=== PATIENT | male | born 1995 | race Caucasian/White ===

== ENCOUNTER 2023-10-11 18:45 | Emergency (ER) | payer SELFPAY ==
--- NOTE | ~2023-10-11 | XR_ITS ---
EXAMINATION: XR KNEE, LEFT CLINICAL INFORMATION: Left knee pain, hockey collision COMPARISON: None available. TECHNIQUE: AP, lateral, and both oblique views of the left knee. FINDINGS: No evidence of acute fracture or malalignment. Incidental proximal tibial metaphyseal bone island. Joint spaces well-preserved. No suprapatellar joint effusion. Soft tissues unremarkable. XR/XR knee LT 4V IMPRESSION: Normal left knee radiographs.
[2023-10-11 18:51] VITALS: BP 132/76; BP 148/80; PULSE 104; PULSE 86; RESP 18; TEMP 37; O2SAT 95; O2SAT 98; BMI 28.6
--- NOTE | 2023-10-11 19:27 | ED.GENADULT ---
HPI - General Adult General Chief complaint: Extremity Injury, Lower Stated complaint: Hockey collision, L knee pain, hx of torn meniscus Time Seen by Provider: 10/11/23 18:51 Source: patient Mode of arrival: ambulatory Limitations: no limitations History of Present Illness HPI narrative: 28 yold male presents with pmh of left torn meniscus presents to the ED for left knee pain. patient states he was playing hockey and he fell and other players fell unto his left knee and heard a popping sound in left knee. Patient states he had helmet on and had no loss of concssiosuness. patient staets no other complaints. Related Data Previous Rx's Medication Instructions Recorded ketorolac 10 mg tablet 10 mg PO Q6H PRN pain 5 days #20 10/11/23 tabs prednisone 20 mg tablet 40 mg (2 x 20 mg) PO DAILY 5 days 10/11/23 #10 tabs Allergies Allergy/AdvReac Type Severity Reaction Status Date / Time No Known Allergies Allergy Verified 10/11/23 18:57 Review of Systems Review of Systems: left knee pain. heard a pop. Yes all other systems are reviewed and are negative [facility] Social History Social History Advance Directives: No Advance Directives Information Provided: Yes Physical Exam ED Vital Signs: Vital Signs - 24 hr 10/11/23 18:51 Temperature 98.6 F Pulse Rate 86 Respiratory Rate 18 Blood Pressure 132/76 Pulse Oximetry 95 Oxygen Delivery Method Room Air BMI result Body Mass Index 28.6 Const General: cooperative, healthy appearing, comfortable, no acute distress and well developed Orientation/consciousness: oriented to person, oriented to place, oriented to time and patient oriented x3 HENMT Head: Yes normal to inspection, Yes No palpable skull fracture present, Yes normocephalic, Yes atraumatic, No abrasion, No Acrocyanosis present, No Lucas's sign, No contusion, No cranial bruits, No hematoma, No laceration, No occipital foramen tenderness, No palpable skull fracture, No raccoon eyes, No scalp lesion, No scalp tenderness, No Temporal artery tenderness present and No periorbital ecchymosis Eyes General: appearance normal, both eyes and all related structures Neck Neck: Yes normal visual inspection, Yes full ROM, Yes no lymphadenopathy, Yes no meningeal signs, Yes trachea midline, Yes supple, No anterior neck swelling and No tender Chest Chest palpation & inspection: normal inspection of the chest and normal palpation of entire chest wall Resp Effort & Inspection: normal respiratory effort and able to speak in complete sentences Auscultation: clear to auscultation bilaterally Cardio Jugular venous distension: no JVD Heart sounds: S1 normal heart sound present and S2 normal heart sound present GI Inspection: Yes normal to inspection and No abdominal wall ecchymosis Palpation (GI): Soft to palpation, not firm, nontender, no guarding and not rigid General: No CVA tenderness and Yes no CVA tenderness Back/Spine/Pelvis Back: no CVA tenderness, No CVA tenderness and No back tenderness Skin General skin exam: no rashes or lesions noted, elasticity normal and turgor normal Neuro General: oriented to person, oriented to place, oriented to time, patient oriented x3, tone normal, moves all extremities, Normal light touch and pain sensation, no meningeal signs, no focal motor deficits, CN's II-XI intact bilaterally and normal sensation to monofilament Extrem General: Yes normal to inspection, Yes full ROM and Yes capillary refill normal Knee images: 1. positive for tenderness on palpation. negative for crepitus, deformity, redness, warmth, or elaxicty. rest of extremity neurovascular exam intact. Motor exam at knee and limited due to pain but patient can move knee. Negative for any dip and thigh to indicate patellar tendon tear. Negative for any posterior hamstring tenderness. Rest of extremity normal Psych Appearance: grossly normal, well kempt and not disheveled Medications Administered Discontinued Medications Generic Name Dose Route Start Last Admin Trade Name Freq PRN Reason Stop Dose Admin Ketorolac Tromethamine 30 mg 10/11/23 19:31 10/11/23 19:54 Ketorolac Tromethamine 30 Mg/Ml Vial IM 10/11/23 19:32 30 mg ONCE ONE Administration Medical Decision Making Medical Decision Making 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 Patient denies any loss of consciousness. Patient had helmet on. Patient has popping left knee. X-ray negative for any fracture or joint effusion. Patient placed in knee immobilizer and given crutches. Patient will be discharged with pain medication form to follow-up with orthopedic Differential Diagnosis Differential Diagnoses: The differential diagnosis associated with the presentation includes ( knee fracture, knee dislocation, ligament meniscus tear) Admission/Observation Consideration of admission/observation: Escalation of care including admission/observation considered Independent Interpretation I performed an independent interpretation of an: Plain X-Ray Radiology Impression Discussion of test interpretation with radiology: I have reviewed the radiologist's reading. External Record Review External record reviewed: Other (prior visits) Prescription Management I considered prescription management with: Pain Medication Discharge Plan Discharge Clinical Impression: Knee sprain Patient Disposition: Home, Self-Care Instructions: Knee Sprain (ED) Additional Instructions: x-ray negative for fracture but most likely you will need MRI to rule out meniscus/ligament tear. You will be placed in knee immobilizer and crutches. Recommend follow-up with the orthopedic surgeon. Return to the ED for any increased swelling, redness, warmth, stiffness, bluish black discoloration, calf pain, chest pain, shortness of breath, or any other concerning symptoms. Prescriptions: New ketorolac 10 mg tablet 10 mg PO Q6H PRN (Reason: pain) 5 Days Qty: 20 0RF Rx Instructions: Received 30 mg IM Toradol in the ER prednisone 20 mg tablet 40 mg PO DAILY 5 Days Qty: 10 0RF Referrals: [facility] Orthopedic Surgeons [Provider Group] ( left knee sprain. History of left meniscus tear. New or worsening meniscus tear) Stand Alone Forms: Work/School Release Interventions: ED Discharge Assessment Last Done: 10/11/23 21:05 Discharge Date/Time: 10/11/23 21:11 Print Language: [place]uran
[2023-10-11] MEDS: Ketorolac Tromethamine 30 MG/ML VIAL IM (19:54)
== END 2023-10-11 21:11 | disposition home or self-care (01) ==
PROVIDERS: Emergency Provider Emergency Medicine
DX: S83.92XA Sprain of unspecified site of left knee, initial encounter (principal); M25.562 Pain in left knee; X58.XXXA Exposure to other specified factors, initial encounter; Y93.22 Activity, ice hockey; Y92.328 Other athletic field as the place of occurrence of the external cause; Y99.8 Other external cause status
CPT/HCPCS: 73564; 96372; 99283; 99284; J1885